=== PATIENT | female | born 1960 | race Caucasian/White ===

== ENCOUNTER → 2023-04-04 12:58 | Outpatient (REF) | payer MEDICARE, SELFPAY | LOC: DHCBC MAIN 12:58 | PROVIDERS: ATTENDING PHYSICIAN Internal Medicine Cardiovascular Disease; FAMILY PHYSICIAN Nurse Practitioner Family | DX: R00.2 Palpitations (principal); R07.89 Other chest pain | CPT/HCPCS: 93306 ==

== ENCOUNTER → 2023-09-05 08:12 | Outpatient (REF) | payer MEDICARE, SELFPAY | LOC: WDC 08:12 | PROVIDERS: ATTENDING PHYSICIAN Nurse Practitioner Family | DX: Z12.31 Encounter for screening mammogram for malignant neoplasm of breast (principal) | CPT/HCPCS: 77063; 77067 ==